=== PATIENT | male | born 2000 | race Caucasian/White ===

== ENCOUNTER 2018-01-19 03:03 | Emergency (ER) | payer MEDICAID ==
[~2018-01-19] VITALS: Ht 200.7 cm; Wt 117.9 kg
[2018-01-19 03:11] VITALS: BP 146/85
[2018-01-19 04:31] LABS: Basophils # (auto) 0.1 uL; Basophils % (auto) 0.6 % (0.0-2.0); Eosinophils # (auto) 0.2 uL; Eosinophils % (auto) 1.7 % (0.0-7.0); Hemoglobin 16.5 g/dL (13.5-17.5); Lymphocytes # (auto) 4.7 uL; Mean Corpuscular Hemoglobin 29.4 pg (28.0-32.0); Mean Corpuscular Hgb Conc. 34.4 g/dL (32.0-36.0); Mean Corpuscular Volume 85.5 fL (80.0-100.0); Monocytes % (auto) 7.4 % (0.0-12.0); Neutrophils # (auto) 7.4 uL; Neutrophils % (auto) 55.3 % (37.0-80.0); Platelet Count (auto) 319 10^3/uL (140-450); Red Blood Cells 5.62 10^6/uL (4.5-5.90); Red Cell Distribution Width 12.9 % (11.8-14.3); White Blood Cell 13.4 10^3/uL (4.4-10.8)
[2018-01-19 04:47] LABS: Albumin 4.1 g/dL (3.4-5.0); BUN/Creatinine Ratio 11.1; Calcium 9.3 mg/dL (8.5-10.1); Magnesium 2.4 mg/dL (1.6-2.6); Potassium 3.3 mmol/L (3.5-5.1)
[2018-01-19 04:50] LABS: Bilirubin, Total 0.4 mg/dL (0.2-1.0); Total Protein 7.8 g/dL (6.4-8.2)
== END 2018-01-19 06:45 | disposition home or self-care (01) ==
LOC: ER 03:03
DX: R10.11 Right upper quadrant pain (principal); F90.9 Attention-deficit hyperactivity disorder, unspecified type
CPT/HCPCS: 36415; 80053; 83690; 83735; 85025

== ENCOUNTER 2024-08-01 22:24 | Emergency (ER) | payer MEDICAID ==
[~2024-08-01] VITALS: Ht 198.1 cm; Wt 108.1 kg
[2024-08-01 22:35] VITALS: BP 144/71; PULSE 83; RESP 18; O2SAT 100
[2024-08-01] MEDS ORDERED: AMOX875T4 PO (23:41)
[2024-08-01] MEDS ORDERED: IBUP-1456 PO (23:41)
[2024-08-01] MEDS: BENZOCAINE (DENTAL) 20 % SPRAY 60ML MT ONE (23:48)
== END 2024-08-01 23:51 | disposition home or self-care (01) ==
LOC: ER 22:24
DX: S02.5XXA Fracture of tooth (traumatic), initial encounter for closed fracture (principal); X58.XXXA Exposure to other specified factors, initial encounter; Y93.89 Activity, other specified; Y92.89 Other specified places as the place of occurrence of the external cause; Y99.8 Other external cause status